=== PATIENT | female | born 1960 | race Caucasian/White ===

== ENCOUNTER 2017-03-18 14:31 | Outpatient (CLI) | payer MEDICAID ==
[~2017-03-18 14:31] MED LIST: ASPIR-TRIN325 MG PO; ATORVASTATIN CA20 M1 PO; AVPAK LEVETIRA500 MG PO; BACTRIM DS 8001 TA1 PO; DIFLUCAN100 M1 PO; ESCITALOPRAM10 M1 PO; ETODOLAC400 MG PO; FISH OIL 1,001000 MG PO; FLONASE 50 MCG16 GM; GABAPENTIN TAB600 MG PO; HYDROCHLOROTHIA25 M1 PO; METOPROLOL SUCC50 M4 PO; MYCOSTATIN100000 U/G TP; PANTOPRAZOLE SO40 M1 PO; TIZANIDINE4 MG NG; TYLENOL WITH CO1 TA1 PO; VITAMIN D50000 I1 PO; ZYVOX600 MG PO
== END 2017-03-18 15:38 ==
LOC: ACC 14:31
DX: Z86.73 Personal history of transient ischemic attack (TIA), and cerebral infarction without residual deficits (principal); Z79.01 Long term (current) use of anticoagulants; Z51.81 Encounter for therapeutic drug level monitoring
CPT/HCPCS: G0463